=== PATIENT | male | born 1985 ===

== ENCOUNTER 2017-08-04 17:28 | Emergency (ER) | payer OTHER, SELFPAY ==
[2017-08-04 17:35] VITALS: BP 142/102; PULSE 90; RESP 16; TEMP 98.1; O2SAT 99
--- NOTE | 2017-08-04 17:53 | ED PDOC ---
Lower Extremity Pain/Injury Time Seen by Provider: 08/04/17 17:36 Chief Complaint (Nursing): Lower Extremity Problem/Injury Chief Complaint (Provider): Lower Extremity Problem/Injury History Per: Patient History/Exam Limitations: no limitations Onset/Duration Of Symptoms: Other (x 1 month) Current Symptoms Are (Timing): Still Present Additional Complaint(s): Chung is a 31 year old male who presents to the emergency department with left ankle pain. Patient states he twisted his left foot stepping off 2nd step at work 1 month ago and twisted his left foot. Patient states pain worsen today. Patient admits to taking Motrin a few hours ago with minimal relief. Patient admits to putting 2 [id number] pain patches at work with no relief. Reports swelling after working the entire day. PMD: No Family Provider Past Medical History Reviewed: Historical Data, Nursing Documentation, Vital Signs Vital Signs: Last Vital Signs Temp 98.1 F 08/04/17 17:33 Pulse 90 08/04/17 17:33 Resp 16 08/04/17 17:33 BP 142/102 H 08/04/17 17:33 Pulse Ox 99 08/04/17 17:33 - Medical History PMH: No Chronic Diseases - Surgical History Surgical History: No Surg Hx - Family History Family History: States: Unknown Family Hx - Allergies Allergies/Adverse Reactions: Allergies Allergy/AdvReac Type Severity Reaction Status Date / Time No Known Allergies Allergy Verified 08/04/17 17:32 Review of Systems ROS Statement: Except As Marked, All Systems Reviewed And Found Negative Musculoskeletal: Positive for: Other (Left Ankle Pain) Physical Exam - Reviewed Nursing Documentation Reviewed: Yes Vital Signs Reviewed: Yes - Physical Exam Appears: Positive for: Well, Non-toxic, No Acute Distress Skin: Positive for: Normal Color (No erythema, no ecchymosis ) Eye Exam: Positive for: Normal appearance ENT: Positive for: Normal ENT Inspection Neck: Positive for: Normal Cardiovascular/Chest: Positive for: Regular Rate, Rhythm Respiratory: Positive for: Normal Breath Sounds Gastrointestinal/Abdominal: Positive for: Normal Exam Back: Positive for: Normal Inspection Extremity: Positive for: Normal ROM, Tenderness (Generalized tenderness ), Swelling. Negative for: Deformity Neurologic/Psych: Positive for: Alert - ECG O2 Sat by Pulse Oximetry: 99 (RA) Pulse Ox Interpretation: Normal Medical Decision Making Medical Decision Making: Time: 17:42 Plan: - Left Ankle X-Ray - Left Foot, 3rd Digit X-Ray Time: 18:05 Left Foot X-Ray FINDINGS: No significant/acute osseous, articular or soft tissue abnormalities. IMPRESSION: No significant or acute findings to account for/ related to the clinical presentation. Time: 18:37 - Ultram 50 mg PO Time: 18:43 Left Ankle X-Ray FINDINGS: BONES: Normal. No fracture. JOINTS: Normal. No osteoarthritis. Ankle mortise maintained. Talar dome intact SOFT TISSUES: Soft tissue swelling anteriorly and laterally without distal fibular or tibial fracture. OTHER FINDINGS: None. IMPRESSION: Soft tissue swelling without acute articular or osseous abnormality. Podiatry consult completed. Scribe Attestation: Documented by Dean English, acting as a scribe for Mai Monroe PA-C Provider Scribe Attestation: All medical record entries made by the Scribe were at my direction and personally dictated by me. I have reviewed the chart and agree that the record accurately reflects my personal performance of the history, physical exam, medical decision making, and the department course for this patient. I have also personally directed, reviewed, and agree with the discharge instructions and disposition. Disposition - Clinical Impression Clinical Impression: Foot sprain - Patient ED Disposition Is Patient to be Admitted: No Counseled Patient/Family Regarding: Diagnosis, Need For Followup - Disposition Referrals: Podiatry Clinic [Outside] Disposition: Routine/Home Disposition Time: 21:03 Condition: GOOD Instructions: Foot Sprain (ED) Forms: [facility] (Greek) Print Language: THAI
--- NOTE | 2017-08-04 18:44 | RAD ---
PROCEDURE: Left Ankle Radiographs. HISTORY: ankle pain, fall COMPARISON: None FINDINGS: BONES: Normal. No fracture. JOINTS: Normal. No osteoarthritis. Ankle mortise maintained. Talar dome intact SOFT TISSUES: Soft tissue swelling anteriorly and laterally without distal fibular or tibial fracture. OTHER FINDINGS: None. IMPRESSION: Soft tissue swelling without acute articular or osseous abnormality.
--- NOTE | 2017-08-04 18:44 | RAD ---
PROCEDURE: Left foot HISTORY: left foot pain, twisted 1 month ago COMPARISON: [facility]. TECHNIQUE: Left ankle reported separately FINDINGS: No significant/acute osseous, articular or soft tissue abnormalities. IMPRESSION: No significant or acute findings to account for/ related to the clinical presentation.
--- NOTE | 2017-08-05 00:20 | CP.PCM.CON ---
History of Present Illness - History of Present Illness History of Present Illness: 31 year old male with no PMHx seen and evaluated in ED for painful left ankle. Patient states that several months ago he inverted his ankle causing pain in the area of the lateral malleolus. Patient states that he was still able to weight bear and that over time the pain improved. He did not seek medical advice. This morning he noticed that the pain in the area was increased greatly and that the area was swollen. He denies any new recent ankle inversion. Patient states that he took Ibuprofen for the pain which has only minimally helped to relieve his symptoms. Patient denies any further pedal complaints at this time. Denies recent N/V/F/C/CP/SOB/D/posterior calf pain Meds: Denies All: NKDA PSH: Denies FH: Unremarkable SH: Denies tobacco, ETOH, illicit drugs, works on his feet in a deli Review of Systems - Review of Systems Review of Systems: ROS as per HPI. All other systems reviewed and found to be negative Past Patient History - Past Social History Smoking Status: Never Smoked - PSYCHIATRIC Hx Substance Use: No Meds Home Medications: Home Medication List Medication Instructions Recorded Confirmed Type Ibuprofen [Motrin Tab] 800 mg PO Q6H PRN #20 tab 08/04/17 Rx Allergies/Adverse Reactions: Allergies Allergy/AdvReac Type Severity Reaction Status Date / Time No Known Allergies Allergy Verified 08/04/17 17:32 Physical Exam - Constitutional Appears: Well, Non-toxic, No Acute Distress - Extremities Exam Additional comments: LE focused exam: Vasc: DP/PT pulses palpable 2/4 b/l. Skin temperature warm to warm from proximal to distal. CFT < 3 seconds to all digits. +1 nonpitting edema noted to level of left malleolus Neuro: Epicritic and protective sensation grossly intact b/l Derm: No open lesions, wounds, maceration, xerosis, abnormal pigmentation or abnormal growths noted b/l MSK: No POP to lateral left ankle. Pain with active dorsiflexion of left ankle at lateral malleoli. Pain with ambulation/antalgic gait favoring left leg - Neurological Exam Neurological exam: Alert, Oriented x3 - Psychiatric Exam Psychiatric exam: Normal Affect, Normal Mood Results - Vital Signs Recent Vital Signs: Last Vital Signs Temp 98.1 F 08/04/17 17:33 Pulse 90 08/04/17 17:33 Resp 16 08/04/17 17:33 BP 142/102 H 08/04/17 17:33 Pulse Ox 99 08/04/17 21:05 Assessment & Plan - Assessment and Plan (Free Text) Assessment: 31 year old male seen in ED for sprain of lateral left ankle Plan: Patient seen and evaluated in ED Plan discussed with attending Dr. Hedrick Xray left ankle shows diffuse soft tissue edema but no signs of acute fx Patient instructed to remain NWB for next few days and to rest, ice, and elevate his foot Compressive dressing applied to patient's foot and ankle Patient advised to leave dressing C/D/I during the day Patient to take NSAIDs as needed for pain Patient dispensed crutches and trained on proper use Patient to f/u in podiatry clinic in one week if pain does not improve for MRI - Date & Time Date: 08/05/17 Time: 00:25
== END 2017-08-04 21:24 | disposition home or self-care (01) ==
LOC: H.ER 17:28
DX: S93.602A Unspecified sprain of left foot, initial encounter (principal); X50.1XXA Overexertion from prolonged static or awkward postures, initial encounter